=== PATIENT | female | born 1995 | race Caucasian/White ===

== ENCOUNTER 2025-01-05 13:01 | Emergency (ER) | payer OTHER, SELFPAY ==
[2025-01-05 13:03] VITALS: BP 115/72
[2025-01-05 14:13] LABS: % Basophils 0.3 % (0-2); % Eosinophils 0.7 % (0-6); % Immature Granulocytes 0.1 % (0-0.5); % Lymphocytes 32.5 % (20.5-51.1); % Monocytes 6.6 % (1.7-9.3); % Neutrophils 59.8 % (42.2-75.2); Absolute Eosinophils 0.1 10^3/uL (0-0.7); Absolute Lymphocytes 2.4 10^3/uL (1.2-3.4); Absolute Monocytes 0.5 10^3/uL (0.1-0.6); Absolute Neutrophils 4.5 10^3/uL (1.4-6.5); Hematocrit 39.6 % (37.0-47.0); Hemoglobin 13.7 g/dL (12.0-16.0); Mean Corp Hgb Conc. 34.6 g/dL (33.0-37.0); Mean Corpuscular Hgb 30.3 pg (27.0-31.0); Mean Corpuscular Volume 87.6 fL (81.0-99.0); Mean Platelet Volume 10.4 fL (7.4-10.4); Nucleated Red Blood Cells % 0 %; Platelet Count 231 10^3/uL (130-400); Red Blood Cell Count 4.52 10^6/uL (4.20-5.40); Red Cell Dist. Width 11.8 % (11.5-14.5); White Blood Cell Count 7.5 10^3/uL (4.8-10.8)
[2025-01-05 14:23] LABS: ALT (SGPT) 20 U/L (0-35); AST (SGOT) 21 U/L (14-36); Albumin 4.5 g/dl (3.5-5.0); Alkaline Phosphatase 45 U/L (38-126); Blood Urea Nitrogen 13 mg/dl (7-17); Calcium 9.4 mg/dl (8.4-10.2); Carbon Dioxide 24 mmol/L (22-30); Chloride 105 mmol/L (98-107); Glucose 93 mg/dl (70-99); Sodium 137 mmol/L (135-145); Total Bilirubin 0.5 mg/dl (0.2-1.3); Total Protein 7.1 g/dl (6.3-8.2); eGFR > 60.00
--- NOTE | 2025-01-05 15:12 | ED.GENMED ---
History of Present Illness
General
Chief Complaint: Problems
Source: patient
Time Seen by Provider: 01/05/25 14:14
History of Present Illness
History of Present Illness:
29-year-old female with past medical history of IBS, , presenting to the ER for evaluation after she started having some lower abdominal cramping last night, this morning noticed a little bit of light brown discharge and then later in the
morning/early afternoon started to notice a little bit more blood when she wiped and saw 1 small clot. Patient is not having any pain today. Last menstrual period was October 24. Patient has already seen her [employer] for this and had a
single IUP on ultrasound. Patient reports her beta hCG level at that time was also around 39,000. Patient has no other concerns at this time.
Past History
Past History
ED Past Medical History: None
ED Past Surgical History:
Social History
Tobacco: Non-smoker
Alcohol: None
Drug: None
Personal:
Living: with family
Employment: Employed
Family History
Family History: Other
Review of Systems
Review of Systems
All Other Systems: ROS reviewed and negative except as documented in HPI and ROS
Phy Exam
Physical Exam
Physical Exam:
GENERAL: Alert , in no apparent distress
EYE: clear conjunctiva b/l
HEAD: NCAT
ENT: o/p clr, mmm.
ABDOMEN: Soft, without focal tenderness, no r/g, no cvat
NEUROLOGICAL: Alert and oriented
SKIN: Warm and dry, skin intact.
MUSCULOSKELETAL: No edema, well perfused.
PSYCH: Normal and appropriate interaction.
Scores
Heart Failure Risk
Heart Failure Risk Score: Not Applicable
Heart Score for Chest Pain Patients
STEMI patient?: Not applicable
Withdrawal Assessment of Alcohol
Withdrawal Assessment Completed?: Not applicable
Course
Orders/Labs/Results
Orders:
Orders
01/05/25 13:58
US W Transvaginal Urgent
Reason For Exam: 10 weeks , bleeding
01/05/25 14:03
Type+Screen Urgent
Complete Blood Count/With Diff Urgent
Comprehensive Metabolic Panel Urgent
HCG, Beta Quantitative [Beta HCG Quantitative] Urgent
Is this a screen?: No
01/05/25 14:03
01/05/25 14:03
Vital Signs
Initial and Last Documented VS:
Initial Vital Signs
Temp Pulse Resp BP Pulse Ox
97.8 F 80 16 115/72 100
01/05/25 13:03 01/05/25 13:03 01/05/25 13:03 01/05/25 13:03 01/05/25 13:03
Last Documented Vital Signs
Temp Pulse Resp BP Pulse Ox
97.8 F 80 16 115/72 100
01/05/25 13:03 01/05/25 13:03 01/05/25 13:03 01/05/25 13:03 01/05/25 13:03
Information
Weeks gestation: Weeks: (8w3d)
Location: Location: (IUP)
MDM/Problems Addressed
Differential Diagnosis Includes:
Threatened , incomplete miscarriage, I do not have concern for ectopic given already known IUP
MDM/Problems Addressed:
29-year-old female presenting to the ER for evaluation of vaginal bleeding/spotting that started earlier today, abdominal cramping last night. Labs and ultrasound imaging was ordered upon arrival. Patient is hemodynamically stable. hCG is
decreased from patient's reported 39,002 weeks ago which raises concern for incomplete . Ultrasound results pending. Anticipate discharge home with close outpatient monitoring by [employer].
*Radiology
Radiology exam reviewed: radiology read reviewed
*Pulse Oximetry
Patient hypoxic: no
*Critical Care Note
Total Time (30-74mins, 75-104mins- exclusive of procedures): Not Applicable
Patient Management
Discussion with other providers: Home Care Specialist
Escalation/DeEscalation of care consider admission/obs:
Patient reports that on her ultrasound that she had done with her [employer] she did have a detectable heartbeat. Patient's ultrasound today does not show any detectable heartbeat. Given her reportedly downtrending hCG combined with a
ultrasound that does not show a heartbeat now I have high suspicion for an incomplete miscarriage. I notified on-call [employer], Dr. Mackay, to help expedite patient's outpatient follow-up. Patient provided with return precautions to the
emergency department. Patient and significant other expressed understanding. Stable for discharge home.
ED Attending Note
-
Portions of this chart may have been created with voice recognition software.� Occasional wrong word or��sound alike� substitutions may have occurred due to the inherent limitations of voice recognition software.
Discharge Plan
Departure
Patient Disposition: Home (Routine Discharge)
Date of Disposition: 01/05/25
Time of Disposition: 15:20
Patient with high blood pressure during this ER visit?: No
Discharge Problem:
Incomplete
Instructions: Loss (Miscarriage) ED
Prescriptions:
No Action
[id number] 1 mg Tablet
1 tab PO DAILY
ibuprofen 600 mg Tablet
600 mg PO Q6HPRN PRN (Reason: cramps) Qty: 90 0RF
Referrals:
Belle Mackay, DO [Active] -
Interventions
Interventions:
*Risk Screen - Suicide Last Done: 01/05/25 13:03
*General Assessment Last Done: 01/05/25 13:03
*Neglect/Abuse Screening Last Done: 01/05/25 13:03
ED- Fall Risk Assessment Last Done: 01/05/25 15:36
*ED COVID-19 Vaccine History Last Done: 01/05/25 13:03
*Nursing Disposition Last Done: 01/05/25 15:36
ED-Female Genitourinary Assessment Last Done: 01/05/25 15:28
Discharge Date and Time
Discharge Date/Time: 01/05/25 15:36
Print Language: SLOVENIAN
== END 2025-01-05 15:36 | disposition home or self-care (01) ==
LOC: EMR 13:01
PROVIDERS: Emergency Medicine; EMERGENCY PHYSICIAN Emergency Medicine
DX: O03.4 Incomplete spontaneous abortion without complication (principal); Z3A.10 10 weeks gestation of pregnancy; O99.611 Diseases of the digestive system complicating pregnancy, first trimester; K58.9 Irritable bowel syndrome, unspecified; Z88.1 Allergy status to other antibiotic agents; Z88.0 Allergy status to penicillin
CPT/HCPCS: 99284; 76801; 76817; 80053; 84702; 85025; 86850; 86900; 86901

== ENCOUNTER → 2025-08-05 11:12 | Outpatient (REF) | payer OTHER, SELFPAY | LOC: PNTC 11:12 | PROVIDERS: ATTENDING PHYSICIAN Obstetrics & Gynecology | DX: Z36.0 Encounter for antenatal screening for chromosomal anomalies (principal); Z36.82 Encounter for antenatal screening for nuchal translucency; Z3A.13 13 weeks gestation of pregnancy | CPT/HCPCS: 76801; 76813 ==